=== PATIENT | female | born 1935 | race Caucasian/White ===

== ENCOUNTER 2023-01-17 14:19 | Inpatient (IN) | payer MEDICARE, MEDICAID ==
[2023-01-17 15:16] LABS: #Basophils 0.1 thou/uL (0.0-0.2); #Monocytes 1.2 thou/uL (0.11-0.59); #Neutrophils 11.3 thou/uL (1.40-6.50); %Basophils 0.4 % (0.0-1.0); %Eosinophils 0.1 % (0.0-10.0); %Lymphocytes 7.5 % (21.0-51.0); %Monocytes 8.6 % (0.0-10.0); Hematocrit 36.9 % (36.0-47.0); Hemoglobin 12.3 g/dL (12.0-16.0); Mean Corpuscular HGB CONC 33.3 g/dL (32.0-36.0); Mean Corpuscular Volume 92.9 fl (78.0-98.0); Mean Platelet Volume 9.3 fL (7.4-10.4); Platelet Count 246 10x3/uL (130-400); RBC Distribution Width 12.8 % (11.5-14.5); Red Blood Cell (RBC) Count 3.97 mill/uL (4.20-5.40); White Blood Cell (WBC) Count 13.6 10x3/uL (4.8-10.8)
[2023-01-17 15:28] LABS: PTT 27.4 sec (22.9-36.1); Prothrombin Time 13.9 sec (12.0-14.7)
[2023-01-17 15:43] LABS: ALT (SGPT) 12 U/L (8-55); AST (SGOT) 16 U/L (5-34); Albumin 3.9 g/dL (3.4-4.8); Alkaline Phosphatase 76 U/L (40-110); Anion Gap 13 mmol/L (10-20); BUN (Urea Nitrogen) 16 mg/dL (9.8-20.1); Bilirubin, Total 0.6 mg/dL (0.2-1.2); Calc. Creatinine Clearance 0 mL/min (70-130); Calcium 8.9 mg/dL (7.8-10.44); Carbon Dioxide 25 mmol/L (23-31); Chloride 105 mmol/L (98-107); Estimated GFR 55; Globulin 2.4 g/dL (2.4-3.5); Glucose 159 mg/dL (83-110); Potassium 4.1 mmol/L (3.5-5.1); Protein, Total 6.3 g/dL (5.8-8.1); Sodium 139 mmol/L (136-145)
[2023-01-17] MEDS ORDERED: Dextrose 50% Abboject 50 ML SYRINGE SLOW IVP PRN (16:29)
[2023-01-17] MEDS ORDERED: Ondansetron PF 4 MG/2 ML Vial IVP PRN (16:29)
[2023-01-17] MEDS ORDERED: TETANUS, DIPHTHERIA TOX,ADULT (TDVAX) 0.5 ML VIAL IM ONE (16:29)
[2023-01-17] MEDS ORDERED: Glucagon 1 MG/ML KIT IM PRN (16:29)
[2023-01-17] MEDS ORDERED: Promethazine HCl 25 MG/ML VIAL IM PRN (16:29)
[2023-01-17] MEDS ORDERED: Dextrose 5% in Water 1,000 ML IV PRN (16:29)
[2023-01-17] MEDS ORDERED: Ondansetron ODT 4 MG TAB PO PRN (16:29)
[2023-01-17] MEDS ORDERED: Morphine 2 MG/ML VIAL SLOW IVP PRN (16:33)
[2023-01-17] MEDS ORDERED: traMADol HCl 50 MG TAB PO PRN (16:33)
[2023-01-17] MEDS ORDERED: hydrALAZINE 20 MG/ML VIAL SLOW IVP PRN (18:19)
[2023-01-17] MEDS ORDERED: Labetalol HCl 100 MG/20 ML VIAL SLOW IVP PRN (18:20)
[2023-01-17 18:32] LABS: Lactic Acid 2.2 mmol/L (0.5-2.2)
[2023-01-17] MEDS: Ibuprofen 200 MG TAB PO SCH (18:41)
[2023-01-17] MEDS: Ferrous Sulfate 325 MG TAB PO SCH (18:41)
[2023-01-17] MEDS: traMADol HCl 50 MG TAB PO SCH ×3 (19:58→23:35)
[2023-01-17] MEDS: Acetaminophen 325 MG TAB PO SCH ×3 (19:58→23:35)
[2023-01-17] MEDS ORDERED: Gabapentin 100 MG CAP PO SCH (21:00)
[2023-01-17] MEDS ORDERED: traZODone HCl 50 MG TAB PO SCH (21:00)
[2023-01-17] MEDS: Docusate 100 MG CAP PO SCH (21:31)
[2023-01-17 23:37] VITALS: BMI 22.1
[2023-01-17] MEDS ORDERED: Lactated Ringer's 1,000 ML IV SCH (23:50)
[2023-01-18] MEDS: Ibuprofen 200 MG TAB PO SCH ×3 (00:49→17:16)
[2023-01-18 04:22] LABS: Bilirubin Negative (Negative); Blood, Urine Negative (Negative); Clarity Turbid (Clear); Glucose, Urine (Dipstick) Normal (Negative); Ketone, Urine Negative (Negative); Leukocyte 500 Leu/uL (Negative); Nitrite 1+ (Negative); Protein, Urine (Dipstick) Negative (Neg-Trace); Specific Gravity, Urine 1.025 (1.002-1.036); Urobilinogen Normal mg/dL (Less than 2); pH, Urine 5.5 (5.0-9.0)
[2023-01-18 04:39] LABS: Bacteria/HPF 4+ HPF (None Seen)
[2023-01-18 04:40] LABS: CAUTI Indications for Culture Alt mental st,lethar
[2023-01-18 04:41] LABS: RBC/HPF 0-3 HPF (0-3); Squamous Epithelial 0-3 HPF (0-3); Urine Culture Reflex No No
[2023-01-18] MEDS: traMADol HCl 50 MG TAB PO SCH ×4 (06:04→23:14)
[2023-01-18] MEDS: Acetaminophen 325 MG TAB PO SCH ×4 (06:04→23:53)
[2023-01-18] MEDS: Levothyroxine Sodium 50 MCG TAB PO SCH (06:04)
[2023-01-18 06:39] LABS: #Basophils 0.1 thou/uL (0.0-0.2); #Eosinphils 0.1 thou/uL (0.0-0.7); #Monocytes 1.2 thou/uL (0.11-0.59); %Basophils 0.9 % (0.0-1.0); %Eosinophils 1.3 % (0.0-10.0); %Lymphocytes 24.7 % (21.0-51.0); %Monocytes 12.1 % (0.0-10.0); %Neutrophils 60.7 % (42.0-75.0); Hematocrit 34.9 % (36.0-47.0); Hemoglobin 11.6 g/dL (12.0-16.0); Mean Corpuscular HGB CONC 33.2 g/dL (32.0-36.0); Mean Corpuscular Hemoglobin 30.4 pg (27.0-31.0); Mean Corpuscular Volume 91.6 fl (78.0-98.0); Platelet Count 237 10x3/uL (130-400); RBC Distribution Width 12.7 % (11.5-14.5); Red Blood Cell (RBC) Count 3.81 mill/uL (4.20-5.40); White Blood Cell (WBC) Count 9.8 10x3/uL (4.8-10.8)
[2023-01-18 07:01] LABS: Anion Gap 13 mmol/L (10-20); BUN (Urea Nitrogen) 15 mg/dL (9.8-20.1); Calc. Creatinine Clearance 40 mL/min (70-130); Carbon Dioxide 25 mmol/L (23-31); Chloride 106 mmol/L (98-107); Estimated GFR 65; Glucose 90 mg/dL (83-110); Phosphorus 2.5 mg/dL (2.3-4.7); Potassium 4.3 mmol/L (3.5-5.1); Sodium 140 mmol/L (136-145)
[2023-01-18] MEDS ORDERED: CEFAZOLIN 2 GM VIAL ONE (09:01)
[2023-01-18] MEDS ORDERED: Sodium Chloride 0.9% 100 ML ONE (09:01)
[2023-01-18] MEDS ORDERED: LevoFLOXacin 500 mg/D5W 100 ML BAG ONE (09:26)
[2023-01-18] MEDS ORDERED: HYDROmorphone 0.5 MG/0.5 ML SYRINGE ONE (09:59)
[2023-01-18] MEDS ORDERED: Ondansetron PF 4 MG/2 ML Vial ONE (10:09)
[2023-01-18] MEDS ORDERED: PROPOFOL 200 MG/20 ML VIAL ONE (10:09)
[2023-01-18] MEDS ORDERED: PHENYLEPHRINE-NS 100 MCG/ML 10 ML SYRINGE ONE (10:09)
[2023-01-18] MEDS ORDERED: Glycopyrrolate 0.2 MG/ML 5 ML SYRINGE ONE (10:09)
[2023-01-18] MEDS: Calcium Carbonate 600 MG + Vit D TAB PO SCH (10:36)
[2023-01-18] MEDS: Docusate 100 MG CAP PO SCH ×2 (10:36→19:36)
[2023-01-18] MEDS: Ferrous Sulfate 325 MG TAB PO SCH ×2 (10:36→17:16)
[2023-01-18] MEDS: Ascorbic Acid 500 mg Chewable Tablet PO SCH (10:36)
[2023-01-18] MEDS ORDERED: Ondansetron HCl/PF 4 MG/2 ML Vial IVP PRN (11:29)
[2023-01-18] MEDS ORDERED: Promethazine HCl 25 MG/ML VIAL IM PRN (11:29)
[2023-01-18] MEDS ORDERED: HYDROmorphone 2 MG/ML VIAL SLOW IVP PRN (11:29)
[2023-01-18] MEDS ORDERED: Senokot 8.6 MG TAB PO PRN (17:26)
[2023-01-18] MEDS ORDERED: cefTRIAXone\\ROCEPHIN 500 MG in Sodium Chloride 0.9% 0 ML IVPB SCH (17:30)
[2023-01-18] MEDS: CEFAZOLIN 2 GM in Sodium Chloride 0.9% 100 ML IVPB SCH (18:02)
[2023-01-19] MEDS: Ibuprofen 200 MG TAB PO SCH ×3 (01:58→17:28)
[2023-01-19] MEDS: CEFAZOLIN 2 GM in Sodium Chloride 0.9% 100 ML IVPB SCH (03:12)
[2023-01-19] MEDS: traMADol HCl 50 MG TAB PO SCH ×4 (05:30→23:04)
[2023-01-19] MEDS: Levothyroxine Sodium 50 MCG TAB PO SCH ×2 (05:32→05:39)
[2023-01-19] MEDS: Acetaminophen 325 MG TAB PO SCH ×5 (05:32→23:04)
[2023-01-19 07:24] LABS: #Basophils 0.1 thou/uL (0.0-0.2); #Eosinphils 0.3 thou/uL (0.0-0.7); #Neutrophils 4.1 thou/uL (1.40-6.50); %Eosinophils 3.5 % (0.0-10.0); %Lymphocytes 23.7 % (21.0-51.0); %Monocytes 13.5 % (0.0-10.0); %Neutrophils 57.7 % (42.0-75.0); Hemoglobin 8.8 g/dL (12.0-16.0); Mean Corpuscular HGB CONC 33.8 g/dL (32.0-36.0); Mean Corpuscular Hemoglobin 31.3 pg (27.0-31.0); Mean Corpuscular Volume 92.5 fl (78.0-98.0); Mean Platelet Volume 9.5 fL (7.4-10.4); Platelet Count 189 10x3/uL (130-400); RBC Distribution Width 12.7 % (11.5-14.5); Red Blood Cell (RBC) Count 2.81 mill/uL (4.20-5.40); White Blood Cell (WBC) Count 7.2 10x3/uL (4.8-10.8)
[2023-01-19] MEDS: Ferrous Sulfate 325 MG TAB PO SCH ×2 (08:35→17:29)
[2023-01-19] MEDS: Docusate 100 MG CAP PO SCH ×3 (08:38→20:39)
[2023-01-19] MEDS: Polyethylene Glycol 3350 17 GM Packet PER TUBE SCH (08:38)
[2023-01-19] MEDS: Ascorbic Acid 500 mg Chewable Tablet PO SCH (08:39)
[2023-01-19] MEDS: Calcium Carbonate 600 MG + Vit D TAB PO SCH (08:41)
[2023-01-19 10:58] LABS: #Basophils 0.1 thou/uL (0.0-0.2); #Eosinphils 0.2 thou/uL (0.0-0.7); #Monocytes 0.9 thou/uL (0.11-0.59); #Neutrophils 4.1 thou/uL (1.40-6.50); %Basophils 1.2 % (0.0-1.0); %Eosinophils 2.9 % (0.0-10.0); %Lymphocytes 22.6 % (21.0-51.0); %Monocytes 12.8 % (0.0-10.0); %Neutrophils 60.1 % (42.0-75.0); Hematocrit 25.7 % (36.0-47.0); Hemoglobin 8.5 g/dL (12.0-16.0); Mean Corpuscular HGB CONC 33.1 g/dL (32.0-36.0); Mean Corpuscular Hemoglobin 30.8 pg (27.0-31.0); Mean Corpuscular Volume 93.1 fl (78.0-98.0); Mean Platelet Volume 9.9 fL (7.4-10.4); Platelet Count 182 10x3/uL (130-400); RBC Distribution Width 12.7 % (11.5-14.5); Red Blood Cell (RBC) Count 2.76 mill/uL (4.20-5.40); White Blood Cell (WBC) Count 6.8 10x3/uL (4.8-10.8)
[2023-01-19 11:13] LABS: Troponin I Less than 0.010 ng/mL (< 0.028)
[2023-01-19] MEDS: cefTRIAXone\\ROCEPHIN 1 GM in Sodium Chloride 0.9% 100 ML IVPB SCH (11:22)
[2023-01-19] MEDS: Mirtazapine 15 MG TAB PO SCH ×2 (20:37→20:39)
[2023-01-19] MEDS: Aspirin 81 mg Enteric Coated Tablet PO SCH ×2 (20:37→20:39)
[2023-01-20] MEDS: Ibuprofen 200 MG TAB PO SCH ×2 (00:39→10:38)
[2023-01-20] MEDS: Acetaminophen 325 MG TAB PO SCH ×2 (05:30→11:50)
[2023-01-20] MEDS: Levothyroxine Sodium 50 MCG TAB PO SCH (05:30)
[2023-01-20] MEDS: traMADol HCl 50 MG TAB PO SCH ×2 (05:30→11:50)
[2023-01-20] MEDS ORDERED: Lisinopril 5 MG TAB PO SCH (09:00)
[2023-01-20] MEDS ORDERED: Famotidine 20 MG TAB PO SCH (09:00)
[2023-01-20] MEDS ORDERED: FLU VACC QS2023(65UP)/MF59C/PF 60 MCG/0.5 ML SYRINGE IM ONE (09:00)
[2023-01-20 09:11] LABS: Hematocrit 25.8 % (36.0-47.0); Hemoglobin 8.7 g/dL (12.0-16.0); Platelet Count 220 10x3/uL (130-400)
[2023-01-20] MEDS: Calcium Carbonate 600 MG + Vit D TAB PO SCH (10:37)
[2023-01-20] MEDS: Aspirin 81 mg Enteric Coated Tablet PO SCH (10:37)
[2023-01-20] MEDS: Ascorbic Acid 500 mg Chewable Tablet PO SCH (10:37)
[2023-01-20] MEDS: Ferrous Sulfate 325 MG TAB PO SCH (10:37)
[2023-01-20] MEDS: Docusate 100 MG CAP PO SCH (10:38)
[2023-01-20] MEDS: Polyethylene Glycol 3350 17 GM Packet PER TUBE SCH (10:38)
[2023-01-20] MEDS: cefTRIAXone\\ROCEPHIN 1 GM in Sodium Chloride 0.9% 100 ML IVPB SCH (11:39)
[2023-01-20 15:51] VITALS: BP 118/58; TEMP 98
== END 2023-01-20 15:20 | disposition home or self-care (01) | DRG 481 ==
LOC: ERS 14:19 → SURG A 16:35
PROVIDERS: ADMIT Student in an Organized Health Care Education/Training Program; ATTEND Student in an Organized Health Care Education/Training Program
PROC: 0QS704Z Reposition Left Upper Femur with Internal Fixation Device, Open Approach (ICD-10-PCS; principal; 2023-01-18)
DX: S72.142A Displaced intertrochanteric fracture of left femur, initial encounter for closed fracture (principal); E46 Unspecified protein-calorie malnutrition; N39.0 Urinary tract infection, site not specified; F03.90 Unspecified dementia, unspecified severity, without behavioral disturbance, psychotic disturbance, mood disturbance, and anxiety; E03.9 Hypothyroidism, unspecified; Z66 Do not resuscitate; G89.11 Acute pain due to trauma; W19.XXXA Unspecified fall, initial encounter; Z79.899 Other long term (current) drug therapy; Z68.22 Body mass index [BMI] 22.0-22.9, adult
CPT/HCPCS: 36415; 36416; 70450; 71045; 72125; 72170; 80048; 80053; 81001; 83605; 83735; 84100; 84484; 85014; 85018; 85025; 85049; 85610; 85730; 86850; 86900; 86901; 93005; 93010; C1713; G0390; J0696; J1170; J1956; J2405; J2704; J3490; J7120

== ENCOUNTER 2024-11-16 22:08 | Inpatient (IN) | payer MEDICARE ==
[2024-11-16 23:03] LABS: #Basophils 0.07 10x3/uL (0.0-0.2); #Eosinophils 0.34 10x3/uL (0.0-0.7); #Monocytes 0.67 10x3/uL (0.11-0.59); #Neutrophils 4.02 10x3/uL (1.40-6.50); %Basophils 0.9 % (0.0-1.0); %Eosinophils 4.6 % (0.0-10.0); %Lymphocytes 30.7 % (21.0-51.0); %Monocytes 9.1 % (0.0-10.0); %Neutrophils 54.4 % (42.0-75.0); Hematocrit 35.1 % (36.0-47.0); Hemoglobin 10.8 g/dL (12.0-16.0); Mean Corpuscular Hemoglobin 27.0 pg (27.0-31.0); Mean Corpuscular Volume 87.8 fL (78.0-98.0); Platelet Count 337 10x3/uL (130-400); Red Blood Cell (RBC) Count 4.00 mill/uL (4.20-5.40); White Blood Cell (WBC) Count 7.39 10x3/uL (4.8-10.8)
[2024-11-16 23:25] LABS: Bacteria/HPF 4+ HPF (None Seen); CAUTI Indications for Culture Alt mental st,lethar; Glucose, Urine (Dipstick) Normal (Negative); Leukocyte 75 Leu/uL (Negative); Protein, Urine (Dipstick) 10 mg/dL (Neg-Trace); RBC/HPF Greater than 50 HPF (0-3); Specific Gravity, Urine 1.027 (1.002-1.036); WBC/HPF 21-50 HPF (0-3)
[2024-11-16 23:37] LABS: ALT (SGPT) 11 U/L (Less than 34); AST (SGOT) 39 U/L (11-34); Albumin 3.0 g/dL (3.1-4.5); Alkaline Phosphatase 89 U/L (40-110); Anion Gap 10 mmol/L (10-20); BUN (Urea Nitrogen) 26 mg/dL (9.8-20.1); Bilirubin, Total 0.3 mg/dL (0.3-1.2); Calc. Creatinine Clearance 0 mL/min (70-130); Calcium 8.6 mg/dL (7.8-10.44); Carbon Dioxide 27 mmol/L (23-31); Chloride 113 mmol/L (98-107); Globulin 3.0 g/dL (2.4-3.5); Glucose 86 mg/dL (83-110); Potassium 3.7 mmol/L (3.5-5.1); Sodium 146 mmol/L (136-145)
[2024-11-16 23:59] LABS: Urine Culture Reflex Yes Yes
[2024-11-17] MEDS ORDERED: cefTRIAXone (ROCEPHIN) 1 GM VIAL ONE (00:51)
[2024-11-17] MEDS ORDERED: Ondansetron PF 4 MG/2 ML Vial IVP PRN (02:59)
[2024-11-17] MEDS ORDERED: Acetaminophen 325 MG TAB PO PRN (02:59)
[2024-11-17] MEDS ORDERED: Calcium Carbonate 500 MG ChewTAB PO PRN (02:59)
[2024-11-17] MEDS: D5 1/2 NS w/20 mEq KCL 1,000 ML IV SCH (04:25)
[2024-11-17 04:41] VITALS: BMI 16.3
[2024-11-17] MEDS: cefTRIAXone\\ROCEPHIN 1 GM in Sodium Chloride 0.9% 100 ML IVPB SCH (08:50)
[2024-11-18 04:55] LABS: #Basophils 0.10 10x3/uL (0.0-0.2); #Eosinophils Less than 0.03 10x3/uL (0.0-0.7); #Monocytes 0.74 10x3/uL (0.11-0.59); #Neutrophils 9.25 10x3/uL (1.40-6.50); %Basophils 0.9 % (0.0-1.0); %Eosinophils 0.1 % (0.0-10.0); %Lymphocytes 10.1 % (21.0-51.0); %Monocytes 6.6 % (0.0-10.0); %Neutrophils 82.1 % (42.0-75.0); Hematocrit 36.6 % (36.0-47.0); Hemoglobin 11.2 g/dL (12.0-16.0); Mean Corpuscular Hemoglobin 26.8 pg (27.0-31.0); Mean Corpuscular Volume 87.6 fL (78.0-98.0); Platelet Count 393 10x3/uL (130-400); Red Blood Cell (RBC) Count 4.18 mill/uL (4.20-5.40); White Blood Cell (WBC) Count 11.26 10x3/uL (4.8-10.8)
[2024-11-18 05:15] LABS: ALT (SGPT) 11 U/L (Less than 34); AST (SGOT) 36 U/L (11-34); Albumin 3.0 g/dL (3.1-4.5); Alkaline Phosphatase 96 U/L (40-110); Anion Gap 11 mmol/L (10-20); BUN (Urea Nitrogen) 17 mg/dL (9.8-20.1); Bilirubin, Total 0.3 mg/dL (0.3-1.2); Calc. Creatinine Clearance 33 mL/min (70-130); Calcium 8.6 mg/dL (7.8-10.44); Carbon Dioxide 23 mmol/L (23-31); Chloride 114 mmol/L (98-107); Globulin 3.1 g/dL (2.4-3.5); Glucose 116 mg/dL (83-110); Potassium 3.5 mmol/L (3.5-5.1); Sodium 144 mmol/L (136-145)
[2024-11-19 13:46] VITALS: BMI 16.4
[2024-11-19] MEDS: levETIRAcetam 500 MG (5 mL) VIAL SLOW IVP SCH ×2 (18:48→20:11)
[2024-11-20 04:46] LABS: #Basophils 0.08 10x3/uL (0.0-0.2); #Eosinophils 0.32 10x3/uL (0.0-0.7); #Monocytes 1.05 10x3/uL (0.11-0.59); #Neutrophils 6.19 10x3/uL (1.40-6.50); %Basophils 0.9 % (0.0-1.0); %Eosinophils 3.5 % (0.0-10.0); %Lymphocytes 17.2 % (21.0-51.0); %Monocytes 11.3 % (0.0-10.0); %Neutrophils 66.8 % (42.0-75.0); Hematocrit 32.9 % (36.0-47.0); Hemoglobin 10.4 g/dL (12.0-16.0); Mean Corpuscular Hemoglobin 27.1 pg (27.0-31.0); Mean Corpuscular Volume 85.7 fL (78.0-98.0); Platelet Count 348 10x3/uL (130-400); Red Blood Cell (RBC) Count 3.84 mill/uL (4.20-5.40); White Blood Cell (WBC) Count 9.26 10x3/uL (4.8-10.8)
[2024-11-20 05:03] LABS: Anion Gap 11 mmol/L (10-20); BUN (Urea Nitrogen) 18 mg/dL (9.8-20.1); Calc. Creatinine Clearance 38 mL/min (70-130); Carbon Dioxide 23 mmol/L (23-31); Chloride 112 mmol/L (98-107); Potassium 3.2 mmol/L (3.5-5.1); Sodium 143 mmol/L (136-145)
[2024-11-20 05:04] LABS: Calcium 7.9 mg/dL (7.8-10.44); Glucose 127 mg/dL (83-110)
[2024-11-21 05:13] LABS: Anion Gap 11 mmol/L (10-20); BUN (Urea Nitrogen) 13 mg/dL (9.8-20.1); Calc. Creatinine Clearance 43 mL/min (70-130); Calcium 7.7 mg/dL (7.8-10.44); Carbon Dioxide 22 mmol/L (23-31); Chloride 110 mmol/L (98-107); Glucose 120 mg/dL (83-110); Magnesium 1.9 mg/dL (1.6-2.6); Potassium 3.2 mmol/L (3.5-5.1); Sodium 140 mmol/L (136-145)
[2024-11-22 09:15] LABS: #Basophils 0.05 10x3/uL (0.0-0.2); #Eosinophils 0.23 10x3/uL (0.0-0.7); #Monocytes 1.12 10x3/uL (0.11-0.59); #Neutrophils 7.20 10x3/uL (1.40-6.50); %Basophils 0.5 % (0.0-1.0); %Eosinophils 2.2 % (0.0-10.0); %Lymphocytes 16.6 % (21.0-51.0); %Monocytes 10.8 % (0.0-10.0); %Neutrophils 69.4 % (42.0-75.0); Hematocrit 30.8 % (36.0-47.0); Hemoglobin 10.0 g/dL (12.0-16.0); Mean Corpuscular Hemoglobin 27.8 pg (27.0-31.0); Mean Corpuscular Volume 85.6 fL (78.0-98.0); Platelet Count 402 10x3/uL (130-400); Red Blood Cell (RBC) Count 3.60 mill/uL (4.20-5.40); White Blood Cell (WBC) Count 10.37 10x3/uL (4.8-10.8)
[2024-11-22 09:36] LABS: Anion Gap 12 mmol/L (10-20); BUN (Urea Nitrogen) 12 mg/dL (9.8-20.1); Calc. Creatinine Clearance 42 mL/min (70-130); Calcium 7.5 mg/dL (7.8-10.44); Carbon Dioxide 24 mmol/L (23-31); Chloride 108 mmol/L (98-107); Glucose 102 mg/dL (83-110); Magnesium 2.0 mg/dL (1.6-2.6); Potassium 3.3 mmol/L (3.5-5.1); Sodium 141 mmol/L (136-145)
[2024-11-22] MEDS: Potassium Bicarbonate/Cit Ac 20 MEQ TAB PO SCH (12:06)
[2024-11-23] MEDS: levETIRAcetam 500 mg/5 ml Oral Solution PER TUBE SCH (01:11)
[2024-11-23] MEDS ORDERED: Calcium Carbonate 500 MG ChewTAB PER TUBE PRN (02:43)
[2024-11-23 15:45] VITALS: BP 129/69; TEMP 98.8
== END 2024-11-23 18:15 | disposition hospice, inpatient (51) | DRG 65 ==
LOC: ERS 22:08 → 2NO 11-17 02:26 → OBSVTOIN 11-17 14:43
PROVIDERS: ADMIT Student in an Organized Health Care Education/Training Program; ATTEND Internal Medicine
DX: I63.89 Other cerebral infarction (principal); E44.0 Moderate protein-calorie malnutrition; E87.0 Hyperosmolality and hypernatremia; F05 Delirium due to known physiological condition; N30.00 Acute cystitis without hematuria; Z16.23 Resistance to quinolones and fluoroquinolones; Z68.1 Body mass index [BMI] 19.9 or less, adult; Z66 Do not resuscitate; I10 Essential (primary) hypertension; E03.9 Hypothyroidism, unspecified; E86.0 Dehydration; F31.9 Bipolar disorder, unspecified; B96.20 Unspecified Escherichia coli [E. coli] as the cause of diseases classified elsewhere; Z79.899 Other long term (current) drug therapy; Z79.890 Hormone replacement therapy; Z79.82 Long term (current) use of aspirin; G30.9 Alzheimer's disease, unspecified; F02.C0 Dementia in other diseases classified elsewhere, severe, without behavioral disturbance, psychotic disturbance, mood disturbance, and anxiety
CPT/HCPCS: 36415; 36416; 51701; 70450; 71045; 74018; 80048; 80053; 81001; 83735; 85025; 87077; 87086; 87186; 87426; 93005; 95700; 95705; 95957; 96361; 96374; 96376; G0378; J0696; J1953; J2060; J3480; J7030